=== PATIENT | male | born 1970 | race Two or more races ===

== ENCOUNTER 2025-01-05 05:53 | Emergency (ER) | payer BC, SELFPAY ==
--- OUTSIDE RECORDS SUMMARY | 2024-10-17 11:45 | XMS_ITS ---
Author Organization [facility] Address [address] [place], [place] [id number] Care Team Providers Care Slasher Runner Name Role Phone Denisse Talamantes Kenton [phone] REASON FOR VISIT DESIGN ARCHITECT Comp Exam Encounters Encounter Location Date Provider Diagnosis [facility] [address], [place] [id number] 10/17/2024 Denisse Talamantes Plan Of Treatment No Information Progress Notes * Maurice ADAMSDOB:1970 (54 yo M)Acc No.[id number]:10/17/2024 Patient: Maurice FERRELL Provider: Zunilda Talamantes DDS :1970 A ge:54 Y S ex:Male Date:10/17/2024 Address:[address] [facility] Subjective: * Chief Complaints: * 1 . DESIGN ARCHITECT Comp Exam. * Medical History: Objective: * Vitals: Assessment: Plan: * Treatment: * Billing Information: * Visit Code: * Procedure Codes: * Electronic signature of Annita Talamantes DDS on 01/05/2025 at 06:43 AM EDT Sign off status: Pending * Provider: Zunilda Talamantes DDS Date: 10/17/2024 Generated for Printi ng/Faxing/eTransmitting on: 01/05/2025 06:43 AM EDT
[2025-01-05 06:01] VITALS: BP 139/89; PULSE 61; TEMP 37.1; O2SAT 95; BMI 33.2
--- NOTE | 2025-01-05 06:13 | ED.GENADUL1 ---
HPI HPI - General Adult General Chief complaint: Skin/Abscess/Foreign Body Stated complaint: STUNG BY A BEE Time Seen by Provider: 01/05/25 05:59 Source: patient Mode of arrival: walk-in Limitations: no limitations History of Present Illness HPI narrative: cc -- insect bite/sting On January 03, the patient states that he was stung several times by what he presumes to be either wasps or bees. He was stung once on the left ear once on the left hand and once on the right forehead near the eyebrow. Over the last 12 hours, these areas have gone from being itchy to being acutely swollen. No systemic complaints such as fever or chills, difficulty talking or swallowing, vomiting. He does not have any known allergy to insects including bees or wasps. He has not taken any dulr-lrl-ckdyidd antihistamine or other medication for these issues. Related Data Home Medications ?Medication ?Instructions ?Recorded ?Confirmed No Known Home Medications 01/05/25 01/05/25 Allergies Allergy/AdvReac Type Severity Reaction Status Date / Time No Known Drug Allergies Allergy Verified 01/05/25 06:01 PFSH PFSH Social History Little interest or pleasure in doing things: not at all Feeling down, depressed, or hopeless: not at all Exam Narrative Exam Narrative: Nurses notes and vital signs reviewed and patient is not hypoxic. afebrile General: Well-appearing and in no apparent distress. Skin: Warm, dry, no pallor noted. No rash. Head: Swelling of the upper right eyelid. The remainder of the face and scalp are normocephalic, atraumatic. Neck: Supple, non-tender. Eye: Pupils are equal, round and EOMI. No scleral icterus. Ears, Nose, Mouth, and Throat: No swelling of the tongue or lips. Oral mucosa is moist Cardiovascular: Regular Rate and Rhythm without murmur, gallop or rub. Respiratory: No accessory muscle use or respiratory distress. Lungs are clear to auscultation, no wheezing, rales or rhonchi Musculoskeletal: 2 and half to 3 cm circular area of swelling and hive type reaction noted to the dorsum of the left hand near the area between the 1st and 2nd metacarpal. The left upper extremity has normal ROM, no wrist, forearm or upper arm tenderness, no diffuse or larger upper extremity edema/swelling Neurological: A&O x4. No cranial nerve dysfunction observed. No truncal ataxia. Moves all extremities. Sensation intact. Psychiatric: Cooperative and interactive. Normal mood and affect. Constitutional Vital Signs, click to edit/add: Last Vital Signs Temp 98.7 F 01/05/25 06:01 Pulse 61 01/05/25 06:01 Resp 19 01/05/25 06:01 BP 139/89 01/05/25 06:01 Pulse Ox 95 01/05/25 06:01 O2 Del Method Room Air 01/05/25 06:01 Course Vital Signs Vital signs: Vital Signs Temperature 98.7 F 01/05/25 06:01 Pulse Rate 61 01/05/25 06:01 Respiratory Rate 19 01/05/25 06:01 Blood Pressure 139/89 01/05/25 06:01 Pulse Oximetry 95 01/05/25 06:01 Oxygen Delivery Method Room Air 01/05/25 06:01 Temperature 98.7 F 01/05/25 06:01 Pulse Rate 61 01/05/25 06:01 Respiratory Rate 19 01/05/25 06:01 Blood Pressure 139/89 01/05/25 06:01 Pulse Oximetry 95 01/05/25 06:01 Oxygen Delivery Method Room Air 01/05/25 06:01 Medical Decision Making MDM Narrative Medical decision making narrative: The patient is having a localized reaction to 3 separate locations on his body after insect sting or bite. He was given IM Solu-Medrol 125 mg and also given oral Benadryl 25 mg before being discharged home. He was prescribed additional prednisone to take daily as needed for any continued swelling. I also told him to take 25 mg Benadryl 3 times a day until the swelling resolves. Reasons to return include difficulty breathing or swallowing, tongue swelling or swelling around the lips and mouth, difficulty talking or any other worrisome conditions. Discharge Plan Discharge Chief Complaint: Skin/Abscess/Foreign Body Clinical Impression: Insect bites, Allergic reaction to insect bite Patient Disposition: Home, Self-Care Time of Disposition Decision: 06:17 Prescriptions / Home Meds: No Action No Known Home Medications Print Language: Belgian Instructions: Insect Bite or Sting (ED)
[2025-01-05] MEDS: METHYLPREDNISOLONE SOD SUCC PF 125 MG/2 ML VIAL IM (06:23)
[2025-01-05] MEDS: DIPHENHYDRAMINE HCL 25 MG CAPSULE PO (06:23)
--- OUTSIDE RECORDS SUMMARY | 2025-01-05 06:43 | XMS_ITS | Encounter Summary ---
Author Organization [facility] Address [id number] [place] [address] Care Team Providers Care Revenue Liaison Name Role Phone Logan Snowden Primary Care Provider + [phone] Encounter Details Date Type Department Care Team (Late st Contact Info) Description 02/01/2024 Telephone [facility] - Family Medicine [address] [place] [address] Chelita Colindres CMA Social History Tobacco Use Types Packs/Day Years Used Date Smoking Tobacco: Former Cigarettes Q uit: 2016 Vaping/E-cigarettes Smokeless Tobacco: Never Alcohol Use Standard Drinks/Week Comments Yes 0 (1 standard drink = 0.6 oz pur e alcohol) Moderate C Utilities Answer Date Recorded In the past 12 months has [employer] electric, gas, oil, or water company threatened to shut off services in your home? No 01/21/2024 Social Connection and Isolat ion Panel [NHANES] Answer Date Recorded In a typical week, how many times do you talk on the phone with family, friends, or neighbors? More than three times a week 01/21/2024 How often do you get togethe r with friends or relatives? Once a week 01/21/2024 How often do you attend chur ch or evangelical services? Never 01/21/2024 Do you belong to any clubs o r organizations such as muslim groups, unions, fraternal or athletic groups, or school groups? No 01/21/2024 How often do you attend meet ings of the clubs or organizations you belong to? Never 01/21/2024 Are you , , di vorced, , never , or living with a partner? 01/21/2024 AUDIT-C Answer Date Recorded Q1: How often do you have a drink containing alc ohol? Monthly or less 01/21/2024 Q2: How many drinks containi ng alcohol do you have on a typical day when you are drinking? 1 or 2 01/21/2024 Q3: How often do you have si x or more drinks on one occasion? Never 01/21/2024 Overall Financial Resource Strain (CARDIA) Answe r Date Recorded How hard is it for you to pa y for the very basics like food, housing, medical care, and heating? Not hard at all 03/02/2023 PHQ-2 Answer Date Recorded Total Score 0 01/21/2024 [facility] ional Health - Occupational Stress Questionnaire Answer Date Recorded Do you feel stress - tense, restless, nervous, or anxious, or unable to sleep at night because your mind is troubled all the time - these days? Not at all 01/21/2024 Exercise Vital Sign Answer Date Recorde d On average, how many days pe r week do you engage in moderate to strenuous exercise (like a brisk walk)? 7 days 01/21/2024 On average, how many minutes do you engage in exercise at this level? 20 min 01/21/2024 PRAPARE - Transportation Answer Date Re corded In the past 12 months, has l ack of transportation kept you from medical appointments or from getting medications? No 02/04 In the past 12 months, has l ack of transportation kept you from meetings, work, or from getting things needed for daily living? No 03/02/2023 Housing Instability Answer Date Recorde d Are you worried or concerned that in the next two months you may not have stable housing that you own, rent or stay in as a part of a household? No 03/02/2023 Childcare Answer Date Recorded Do problems getting child ca re make it difficult for you to work or study? No 01/21/2024 Employment Answer Date Recorded Do you need help finding a [facility] career center and/or a training program? No 01/21/2024 Hunger Screening Answer Date Recorded Within the past 12 months we worried whether our food would run out before we got money to buy more. Never True 01/21/2024 Within the past 12 months th e food we bought just didn't last and we didn't have money to get more. Never True 01/21/2024 Purpose - Life Answer Date Recorded I have a purpose and direction in my life. Agree 01/21/2024 Sex and Gender Information Value Date Recorded Sex Assigned at Not on file Legal Sex Male 11:54 AM EDT Gender Identity Not on file Sexual Orientation Not on file documented as of this encounter Miscellaneous Notes * Telephone Encounter - Chelita Colindres CMA - 02/01/2024 10:13 AM EDT This patient is scheduled for his Colonoscopy on Feb 15 at 10:00am. [facility] * Telephone Encounter - Benedicto Grullon DO - 02/01/2024 10:13 AM EDT Message noted. H&P done. Rx Sup[facility] sent to [facility] documented in this encounter Plan of Treatment Upcoming Encounters Date Type Department Care Team (Late st Contact Info) Description 01/23/2025 4:00 PM EDT Office Visit [facility] - Family Medicine [address] [place] [address] Logan Snowden DO [address] [facility] [place] [address] documented as of this encounter Visit Diagnoses Not on filedocumented in this encounter Additional Health Concerns Assessment Noted Time PHQ-9 Depression Total Score: 0 01/21/20 24 3:37 PM EDT documented as of this encounter Care Teams Revenue Liaison Relationship Specialty Start Date End Date Logan Snowden DO [address] [place] [address] PCP - General Family Medicine 10/31/21 documented as of this encounter
--- OUTSIDE RECORDS SUMMARY | 2025-01-05 06:43 | XMS_ITS | Encounter Summary ---
Author Organization [facility] Address [id number] [place] [address] Care Team Providers Care Medical Nurse Name Role Phone Logan Snowden DO Primary Care Provider [phone] Encounter Details Date Type Department Care Team (Late st Contact Info) Description 03/21/2024 Orders Only [facility] - Family Medicine [address] [place] [address] Logan Snowden DO [address] [place] [address] Social History Tobacco Use Types Packs/Day Years Used Date Smoking Tobacco: Former Cigarettes Q uit: 2016 Vaping/E-cigarettes Smokeless Tobacco: Never Alcohol Use Standard Drinks/Week Comments Yes 0 (1 standard drink = 0.6 oz pur e alcohol) Moderate C Utilities Answer Date Recorded In the past 12 months has [employer], gas, oil, or water [employer] threatened to shut off services in your [...] week 01/21/2024 How often do you attend [facility] or tenriism services? Never 01/21/2024 Do you belong to any clubs o r organizations such as scientologist groups, unions, fraternal or athletic groups, or [...] Answer Date Recorded Total Score 0 01/21/2024 [facility] Occupat ional Health - Occupational Stress [...] Recorded Do you need help finding a [facility] career center and/or a training program? [...] on file documented as of this encounter Plan of Treatment Upcoming Encounters Date Type Department Care Team (Late st Contact Info) Description 01/23/2025 4:00 PM EDT Office Visit [facility] - Family Medicine [address] [place] [address] Logan Snowden DO [address] [facility] [place] [address] documented as of this encounter Visit Diagnoses Not on filedocumented in this encounter Additional Health Concerns Assessment Noted Time PHQ-9 Depression Total Score: 0 01/21/20 24 3:37 PM EDT documented as of this encounter Care Teams Medical Nurse Relationship Specialty Start Date End Date Logan Snowden DO [address] [facility] [address] PCP - General Family Medicine 10/31/21 documented as of this encounter
--- OUTSIDE RECORDS SUMMARY | 2025-01-05 06:43 | XMS_ITS | Patient Health Record ---
Author Organization [facility] Address [address] [place], [place] [address] Care Team Providers Care Deputy Building Guard Name Role Phone Denisse Talamantes Unavailable [phone] Allergies No Known Allergies Reason For Referral No Information Problems Problem Type SNOMED Code ICD Code Onset Dates Problem Status W/U Status Risk Notes Problem Supraspinatus tear (disorder) (290755408) Supraspinatus tendon tear (M75.100) Active confirmed Problem Impingement syndrome of left shoulder region (13340828982632 4) Shoulder impingement, left (M75.42) Active confirmed Comment:Patien t requesting steroid injection. Discussed procedure and what to expect. F/u instructions given. RTO if no improvement., Problem Depression screening (114642625) Screening for depression (Z13.31) Active confirmed Description:De pression screening Problem Plantar fasciitis (640043992) Plantar fasciitis (M72.2) Active confirmed Comment:instru cted using water bottle or soup can to roll out foot twice a day. recommend getting some insoles specific for plantar fasciitis and wearing them in his work shoes. followup in one month., Problem Bicipital tenosynovitis (18937067) Biceps tendonitis (M75.20) Active confirmed Problem Impingement syndrome of shoulder region (611061089) Shoulder impingement, right (M75.41) Active confirmed Comment:will get x-ray -if normal will do PT for 3 weeks and gauge response -REST SHOULDER -ice and nsaids -f/u in 2 weeks, Plan Of Treatment No Information Insurance Providers Payer Name Payer Address Payer Phone Subscriber Number Group Number Insured Name Patient Relationship to Insured Coverage Start Date Coverage End Date [facility] [address] [place] [address] [id number] Maurice Adams Self - patient is the insured 5 Medical (General) History Surgical History Surgery Date(Month/Year) None, ProblemStatus: Active, 2017-03-11
--- OUTSIDE RECORDS SUMMARY | 2025-01-05 06:43 | XMS_ITS | Encounter Summary ---
Author Organization [facility] Address [id number] [address] [place] [address] Care Team Providers Care Still Pump Operator Name Role Phone Logan Snowden Primary Care Provider + [phone] Encounter Details Date Type Department Care Team (Late st Contact Info) Description 02/08/2024 Orders Only [facility] - Family Medicine [address] [place] [address] Benedicto Grullon [address] [place] [address] Special screening for malignant neoplasm of colon (Primary Dx) Social History Tobacco Use Types Packs/Day Years Used Date Smoking Tobacco: Former Cigarettes Q uit: 2016 Vaping/E-cigarettes Smokeless Tobacco: Never Alcohol Use Standard Drinks/Week Comments Yes 0 (1 standard drink = 0.6 oz pur e alcohol) Moderate AHC Utilities Answer Date Recorded In the past 12 months has [employer], gas, oil, or water [employer] threatened to shut off services in your [...] week 01/21/2024 How often do you attend [facility] or taoism services? Never 01/21/2024 Do you belong to any clubs o r organizations such as oriental orthodox groups, unions, fraternal or athletic groups, or [...] Answer Date Recorded Total Score 0 01/21/2024 [facility] of Occupat ional Health - Occupational Stress [...] Internal Medicine - Family Medicine [address] [place] [address] Logan Snowden DO [address] [facility] [place] [address] documented as of this encounter Visit Diagnoses Diagnosis Special screening for malignant neoplasm of colon- Primary Special screening for malignant neoplasms, colon documented in this encounter Additional Health Concerns Assessment Noted Time PHQ-9 Depression Total Score: 0 01/21/20 24 3:37 PM EDT documented as of this encounter Care Teams Still Pump Operator Relationship Specialty Start Date End Date Logan Snowden DO [address] [facility] [place] [address] PCP - General Family Medicine 10/31/21 documented as of this encounter
--- OUTSIDE RECORDS SUMMARY | 2025-01-05 06:43 | XMS_ITS | Encounter Summary ---
Author Organization [employer] Address [facility] [place] [id number] [place] [address] Care Team Providers Care Complaint Adjuster Name Role Phone Logan Snowden DO Primary Care Provider [phone] Reason for Visit * Reason Comments Med Refill Encounter Details Date Type Department Care Team (Late st Contact Info) Description 09/17/2022 Refill [facility] - Family Medicine [address] [place] [address] Logan Snowden DO [address], [facility] [place] [address] Hyperlipidemia, unspecified Social History Tobacco Use Types Packs/Day Years Used Date Smoking Tobacco: Former Cigarettes Q uit: 2016 Vaping/E-cigarettes Smokeless Tobacco: Never Alcohol Use Standard Drinks/Week Comments Yes 0 (1 standard drink = 0.6 oz pur e alcohol) Moderate PHQ-2 Answer Date Recorded Total Score 0 09/03/2022 Childcare Answer Date Recorded Childcare Unknown 12/15/2018 Employment Answer Date Recorded Employment Unknown 12/15/2018 Purpose - Life Answer Date Recorded Purpose and direction in life Unknown Sex and Gender Information Value Date Recorded Sex Assigned at Not on file Legal Sex Male 11:54 AM EDT Gender Identity Not on file Sexual Orientation Not on file COVID-19 Exposure Response Date Recorded In the last month, have you been in contact with someone who was confirmed or suspected to have Coronavirus / COVID-19? No / Unsure 09/03/2022 11:08 AM EST documented as of this encounter Plan of Treatment Upcoming Encounters Date Type Department Care Team (Late st Contact Info) Description 01/23/2025 4:00 PM EDT Office Visit [facility] - Family Medicine [address] [place] [address] Logan Snowden DO [address] [facility] [place] [address] documented as of this encounter Visit Diagnoses Diagnosis Hyperlipidemia, unspecified documented in this encounter Additional Health Concerns Assessment Noted Time PHQ-9 Depression Total Score: 0 09/04/19 11:33 AM EST documented as of this encounter Care Teams Complaint Adjuster Relationship Specialty Start Date End Date Logan Snowden DO [address] [facility] [place] [address] PCP - General Family Medicine 10/31/21 documented as of this encounter
--- OUTSIDE RECORDS SUMMARY | 2025-01-05 06:43 | XMS_ITS | Encounter Summary ---
Author Organization [facility] Address [id number] [place] [address] Care Team Providers Care Hat Marker Name Role Phone Logan Snowden Primary Care Provider + [phone] Encounter Details Date Type Department Care Team (Late st Contact Info) Description 01/19/2024 Telephone [facility] - Family Medicine [address] [place] [address] Rosita Watson, FERRY OPERATOR Social History Tobacco Use Types Packs/Day Years Used Date Smoking Tobacco: Former Cigarettes Q uit: 2016 Vaping/E-cigarettes Smokeless Tobacco: Never Alcohol Use Standard Drinks/Week Comments Yes 0 (1 standard drink = 0.6 oz pur e alcohol) Moderate AHC Utilities Answer Date Recorded In the past 12 months has [facility] electric, gas, oil, or water company threatened [...] often do you attend chur ch or congregational services? Never 01/21/2024 Do you belong to any clubs o r organizations such as moravian groups, unions, fraternal or athletic groups, or [...] Answer Date Recorded Total Score 0 01/21/2024 [facility] of Occupat ional Health - Occupational [...] Recorded Do you need help finding a [facility] career center and/or a training program? [...] on file documented as of this encounter Functional Status * Audit-C Score Answer Date of Assessment Author 1 01/21/2024 4:04 PM ESTELLAT Logan Snowden, * Question Answer Date of Assessment Author Q1: How often do you have a drink containing alcohol? Monthly or less 01/21/2024 4:04 PM Logan Garcia DO Q2: How many drinks containing alcohol do you have on a typical day when you are drinking? 1 or 2 01/21/2024 4:04 PM Porfirio Garcia DO Q3: How often do you have six or more drinks on one occasion? Never 01/21/2024 4:04 PM Logan Garcia DO documented as of this encounter Miscellaneous Notes * Telephone Encounter - Rosita Watson CMA - 01/19/2024 11:22 AM EDT Pts called stated you took him off the nexium and wanted to know if you would send on [facility] * Telephone Encounter - Logan Snowden DO - 01/19/2024 11:22 AM EDT I recommended that he cut back to every other day, not stop it. Has been taking it every other day? * Telephone Encounter - Rosita Watson CMA - 01/19/2024 11:22 AM EDT I called back and read your note she said you told them they cause cancer so they threw them out , she got him some OTC prolosec and they seem to help better an wanted to know if you could send a script ? * Telephone Encounter - Logan Snowden DO - 01/19/2024 11:22 AM EDT The Prilosec has the same risks as Nexium and it is fractures, chronic kidney disease, C diff infection and possibly dementia risks, not any strong association with cancer. documented in this encounter Plan of Treatment Upcoming Encounters Date Type Department Care Team (Late st Contact Info) Description 01/23/2025 4:00 PM EDT Office Visit [facility] - Family Medicine [address] [place] [address] Logan Snowden DO [address] [facility] [place] [address] documented as of this encounter Visit Diagnoses Not on filedocumented in this encounter Additional Health Concerns Assessment Noted Time PHQ-9 Depression Total Score: 0 12/29/19 24 3:56 PM EDT documented as of this encounter Care Teams Hat Marker Relationship Specialty Start Date End Date Logan Snowden DO [address] [facility] [place] [address] PCP - General Family Medicine 10/31/21 documented as of this encounter
--- OUTSIDE RECORDS SUMMARY | 2025-01-05 06:43 | XMS_ITS | Encounter Summary ---
Author Organization [employer] Address [facility] [id number] [address] [place] [address] Care Team Providers Care Master Carpenter Name Role Phone Logan Snowden DO Primary Care Provider + [phone] Reason for Visit * Reason Comments Med Change Request Encounter Details Date Type Department Care Team ([facility] Contact Info) Description 07/16/2022 Refill [facility] Internal Medicine - Family Medicine [address] [place] [address] Tiny Hines, CERTIFIED PHYSICIAN'S ASSISTANT-[employer] [address] [place] [address] Social History Tobacco Use Types Packs/Day Years Used Date Smoking Tobacco: Former Cigarettes Q uit: 2016 Vaping/E-cigarettes Smokeless Tobacco: Never Alcohol Use Standard Drinks/Week Comments Yes 0 (1 standard drink = 0.6 oz pur e alcohol) Moderate Childcare Answer Date Recorded Childcare Unknown 12/15/2018 [...] Upcoming Encounters Date Type Department Care Team ([facility] Contact Info) Description 01/23/2025 4:00 PM EDT Office Visit [facility] Internal Medicine - Family Medicine [address] [place] [address] Logan Snowden DO [address], [place] [address] documented as of this encounter Visit Diagnoses Not on filedocumented in this encounter Care Teams Master Carpenter Relationship Specialty Start Date End Date Logan Snowden DO [address], [facility] [place] [address] PCP - General Family Medicine 10/31/21 documented as of this encounter
--- OUTSIDE RECORDS SUMMARY | 2025-01-05 06:43 | XMS_ITS | Encounter Summary ---
Author Organization [employer] [facility] Address [facility] [id number] [address] [place] [address] Care Team Providers Care Fireman Name Role Phone Logan Snowden Primary Care Provider + [phone] Encounter Details Date Type Department Care Team (Late st Contact Info) Description 01/22/2024 Telephone [facility] Internal Medicine - Family Medicine [address] [place] [address] Morgan Soto CMA Social History Tobacco Use Types Packs/Day Years Used Date Smoking Tobacco: Former Cigarettes Q uit: 2016 Vaping/E-cigarettes Smokeless Tobacco: Never Alcohol Use Standard Drinks/Week Comments Yes 0 (1 standard drink = 0.6 oz pur e alcohol) Moderate C Utilities Answer Date Recorded In the past 12 months has [employer] electric, gas, oil, or water company threatened [...] often do you attend chur ch or presybeterian services? Never 01/21/2024 Do you belong to any clubs o r organizations such as restorationist groups, unions, fraternal or athletic groups, or [...] Answer Date Recorded Total Score 0 01/21/2024 [facility] of Occupat ional Health - [...] Recorded Do you need help finding a [facility] career center and/or a training program? No [...] encounter Miscellaneous Notes * Telephone Encounter - Morgan Soto CMA - 01/22/2024 12:11 PM EDT ----- Message from Dr. Logan Snowden DO sent at 01/22/2024 11:56 AM EDT ----- His CMP showed an ALT of 60. That is up from 1 year ago when it was 49. I would recommend a liver ultrasound to evaluate this further. The rest of his metabolic panel was essentially normal. His PSA was normal. His lipids were all at goal. They are actually much better than they were 1 year ago. Continue rosuvastatin. documented in this encounter Plan of Treatment Upcoming Encounters Date Type Department Care Team (Late st Contact Info) Description 01/23/2025 4:00 PM EDT Office Visit [facility] Medicine - Family Medicine [address] [place] [address] Logan Snowden DO [address], [facility] [place] [address] documented as of this encounter Visit Diagnoses Not on filedocumented in this encounter Additional Health Concerns Assessment Noted Time PHQ-9 Depression Total Score: 0 01/21/20 24 3:37 PM EDT documented as of this encounter Care Teams Fireman Relationship Specialty Start Date End Date Logan Snowden DO [address] [facility] [place] [address] PCP - General Family Medicine 10/31/21 documented as of this encounter
--- OUTSIDE RECORDS SUMMARY | 2025-01-05 06:43 | XMS_ITS | Encounter Summary ---
Author Organization [employer] Address [facility] [id number] [address] [place] [address] Care Team Providers Care Intelligence Applications Name Role Phone Logan Snowden DO Primary Care Provider [phone] Encounter Details Date Type Department Care Team ([facility] Contact Info) Description 04/16/2022 Orders Only [facility] Internal Medicine - Family Medicine [address] [place] [phone] External, Scanning Provider Social History Tobacco Use Types Packs/Day Years Used Date Smoking Tobacco: Former Cigarettes Vaping/E-cigarettes Smokeless Tobacco: Never Alcohol Use Standard [...] have Coronavirus / COVID-19? No / Unsure 04/17/2022 11:17 AM EDT documented as of this encounter Plan of Treatment Upcoming Encounters Date Type Department Care Team (Late Contact Info) Description 01/23/2025 4:00 PM EDT Office Visit [facility] Internal Medicine - Family Medicine [address] [place] [phone] Logan Snowden DO [address] [place] [address] documented as of this encounter Procedures Procedure Name Priority Date/Time Associated Diagnosis Comments LIPID PROFILE Routine 12/23/2021 documented in this encounter Results * (ABNORMAL) Lipid profile (12/23/2021) External Cholesterol 198 < - 200 MANUALLY TRANSCRIBED RESULTS External Cholesterol:Hdl 5.4(A) < - 5.0 MANUALLY TRANSCRIBED RESULTS External Hdl Cholesterol 37 >40 MANUALLY TRANSCRIBED RESULTS External Ldl (Calc) 134(A) < - 100 MANUALLY TRANSCRIBED RESULTS External Triglycerides 138 < - 150 MANUALLY TRANSCRIBED RESULTS 12/23/2021 us Scanning Provider External LAB BLOOD ORDERABLES Final Result Performing Organization Address City/State/[facility] Co de Phone Number MANUALLY TRANSCRIBED RESULTS documented in this encounter Visit Diagnoses Not on filedocumented in this encounter Care Teams Intelligence Applications Relationship Specialty Start Date End Date Logan Snowden DO [address], [place] [address] PCP - General Family Medicine 10/31/21 documented as of this encounter
--- OUTSIDE RECORDS SUMMARY | 2025-01-05 06:43 | XMS_ITS | Encounter Summary ---
Author Organization [employer] [facility] Address [facility] [place] [id number] [address] [place] [address] Care Team Providers Care Mold Builder Name Role Phone Logan Snowden DO Primary Care Provider + [phone] Reason for Visit * Reason Comments Med Refill Encounter Details Date Type Department Care Team (Late st Contact Info) Description 12/31/2024 Refill [facility] Internal Medicine - Family Medicine [address] [place] [address] Logan Snowden DO [address], [facility] [place] [address] Social History Tobacco Use Types Packs/Day Years Used Date Smoking Tobacco: Former Cigarettes Q uit: 2016 Vaping/E-cigarettes Smokeless Tobacco: Never Alcohol Use Standard Drinks/Week Comments Yes 0 (1 standard drink = 0.6 oz pur e alcohol) Moderate AHC Utilities Answer Date Recorded In the past 12 months has [employer], gas, oil, or water [employer] threatened to shut off services in your [...] week 01/21/2024 How often do you attend [facility] or roman catholic services? Never 01/21/2024 Do you belong to any clubs o r organizations such as yazidism groups, unions, fraternal or athletic groups, or [...] PHQ-2 Answer Date Recorded Total Score 0 12/05/2024 [facility] of Occupat ional [...] Recorded Do you need help finding a [facility] career center and/or a training program? No 01/21/2024 Hunger Screening Answer Date Recorded Within the past 12 months we worried whether our food would run out before we got money to buy more. Never True 12/05/2024 Within the past 12 months th e food we bought just didn't last and we didn't have money to get more. Never True 12/05/2024 Purpose - Life Answer Date Recorded I [...] Medicine - Family Medicine [address] [place] [address] Logan Snowden DO [address], [facility] [place] [address] documented as of this encounter Visit Diagnoses Not on filedocumented in this encounter Additional Health Concerns Assessment Noted Time PHQ-9 Depression Total Score: 0 12/06/19 25 3:23 PM EDT A Body Mass Index follow-up plan has been documented for the patient 11/14/2024 3:37 PM EDT documented as of this encounter Care Teams Mold Builder Relationship Specialty Start Date End Date Logan Snowden DO [address] [facility] [place] [address] PCP - General Family Medicine 10/31/21 documented as of this encounter
--- OUTSIDE RECORDS SUMMARY | 2025-01-05 06:43 | XMS_ITS | Clinical Summary ---
Author Organization [facility] Address [address] [place] [address] Care Team Providers Care Soccer Player Name Role Phone Unavailable Primary Care Provider Unavailabl e Social History Tobacco Use Types Packs/Day Years Used Date Smoking Tobacco: Never Assessed Sex and Gender Information Value Date Recorded Sex Assigned at Not on file Legal Sex Male 8:13 PM EDT Gender Identity Not on file Sexual Orientation Not on file Last Filed Vital Signs Vital Sign Reading Time Taken Comments Blood Pressure 132/92 07/08/2017 12:00 PM EST Pulse - - Temperature - - Respiratory Rate - - Oxygen Saturation - - Inhaled Oxygen Concentration - - Weight 98.4 kg (217 lb) 07/08/2017 12:00 PM EST Height 172.7 cm (5' 8 ) 07/08/2017 12:00 PM EST Body Mass Index 32.99 07/08/2017 12:00 PM EST Plan of Treatment Not on file Insurance [facility]
--- OUTSIDE RECORDS SUMMARY | 2025-01-05 06:43 | XMS_ITS | Clinical Summary ---
Author Organization [employer] [facility] Address [id number] [address] [place] [address] Care Team Providers Care Banking Pin Adjuster Name Role Phone NileLogan gee Primary Care Provider Allergies No known active allergies Medications furosemide (LASIX) 20 mg tabletIndication s:Localized edema TAKE 1 TABLET BY MOUTH EVERY DAY IN THE MORNING 90 tablet 1 09/17/19 25 Active rosuvastatin (CRESTOR) 10 mg tabletIndication s:Hyperlipidemia , unspecified TAKE 1 TABLET BY MOUTH EVERY DAY 90 tablet 12/15/19 25 Active losartan (COZAAR) 50 mg tabletIndication s:Essential (primary) hypertension TAKE 1 TABLET BY MOUTH EVERY DAY 90 tablet 1 12/15/19 25 Active naproxen (NAPROSYN) 500 mg tablet TAKE 1 TABLET BY MOUTH 2 TIMES A DAY NEEDED FOR PAIN. 60 tablet 2 01/02/20 25 Active rosuvastatin (CRESTOR) 10 mg tabletIndication s:Hyperlipidemia , unspecified take 1 tablet by mouth every day 90 tablet 2 03/20/20 24 025 Discontinued losartan (COZAAR) 50 mg tabletIndication s:Essential (primary) hypertension take 1 tablet by mouth every day 90 tablet 1 04/10/20 24 025 Discontinued naproxen (NAPROSYN) 500 mg tablet TAKE 1 TABLET BY MOUTH 2 TIMES A DAY NEEDED FOR PAIN. 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 GERD (gastroesophageal reflux disease) Obesity Encounters Date Type Department Care Team Description 12/31/2024 Refill [facility] Internal Medicine - Family Medicine [address] [place] [address] Logan Snowden DO 12/14/2024 Refill [facility] Internal Medicine - Family Medicine [address] [place] [address] Logan Snowden DO Hyperlipidemia, unspecified; Essential (primary) hypertension 12/05/2024 3:30 PM EDT Office Visit [facility] - [facility] [address] [place] [address] Logan Snowden, Impingement of right shoulder (Primary Dx) 12/05/2024 Travel 11/14/2024 3:00 PM EDT Office Visit [facility] - [facility] Medicine [address] [place] [address] Rosalie Sesay, MIKY-SEDA Acute dermatitis (Primary Dx) 11/14/2024 Travel from Last 3 Months Immunizations Immunization Administration Dates Next Due Tdap 01/31/2018,01/01/2014 Zoster Vaccine Recombinant 01/21/2024 Family History Medical History Relation Name Comments No Known Problems Brother No Known Problems Daughter Cancer Father Malignant Tumor of Pharynx Diabetes Maternal Aunt Hypertension Maternal Aunt Diabetes Maternal Uncle Hypertension Maternal Uncle Breast cancer Mother Colon cancer Mother Diabetes Mother Hypertension Mother No Known Problems Sister No Known Problems Son Relation Name Status Comments Brother Alive Daughter Alive Father (Age 73) Maternal Aunt Maternal Uncle Mother Alive Sister Alive Son Alive Social History Tobacco Use Types Packs/Day Years Used Date Smoking Tobacco: Former Cigarettes Q uit: 2016 Vaping/E-cigarettes Smokeless Tobacco: Never Tobacco Cessation:Counseling Given: Not Answered Alcohol Use Standard Drinks/Week Comments Yes 0 (1 standard drink = 0.6 oz pur e alcohol) Moderate C Utilities Answer Date Recorded In the past 12 months has th e electric, gas, oil, or water company threatened [...] often do you attend chur ch or holiness services? Never 01/21/2024 Do you belong to any clubs o r organizations such as advent groups, unions, fraternal or athletic groups, or [...] Answer Date Recorded Total Score 0 12/05/2024 [facility] [place] of Occupat ional Health - Occupational Stress [...] Recorded Do you need help finding a [facility] career center and/or a training program? [...] Sign Reading Time Taken Comments Blood Pressure 110/80 12/05/2024 3:24 PM EDT Pulse 66 12/05/2024 3:24 PM EDT Temperature 36.8 C (98.3 F) 12/05/2024 3:24 PM EDT Respiratory Rate 18 12/05/2024 3:24 PM EDT Oxygen Saturation 97% 12/05/2024 3:24 PM EDT Inhaled Oxygen Concentration - - Weight 105.2 kg (232 lb) 12/05/2024 3:24 PM EDT Height 175.3 cm (5' 9.02 ) 12/05/2024 3:24 PM ED T Body Mass Index 34.24 12/05/2024 3:24 PM EDT Plan of Treatment Upcoming Encounters Date Type Department Care Team (Late st Contact Info) Description 01/23/2025 4:00 PM EDT Office Visit [facility] - Family Medicine [address] [place] [phone] Logan Snowden DO [address], [place] [address] Health Maintenance Due Date Last Done Comments Influenza Vaccine 03/06/2025 Zoster (Shingles) Vaccine (2 of 2) 07/06/2025 01/21/2024 Postponed from 03/17/2024 (Patient Refused) Adult BMI Follow Up Plan 11/14/2025 11/14/2024 Adult BMI Screening 12/05/2025 12/05/2024 Depression Screening 12/05/2025 12/05/2024 Tobacco Screening 12/05/2025 12/05/2024 DTaP,Tdap and Td Vaccines (3 - Td or Tdap) 02/01/2028 01/31/2018, 01/01/2014 Colonoscopy 02/15/2029 02/16/2024, 02/03, 12/09/2021, Additional history exists Medical Devices Not on file Procedures Procedure Name Priority Date/Time Associated Diagnosis Comments [place] ARTHROCENTESIS ASPIR&/INJ MAJOR JT/BURSA W/O US Routine 12/05/2024 3:59 PM EDT Impingement of right shoulder PROVATION COLONOSCOPY Routine 02/16/2024 9:15 AM EDT from Last 3 Months or Most Recently Relevant to Health Maintenance Results * [place] ARTHROCENTESIS ASPIR&/INJ MAJOR JT/BURSA W/O US (12/05/2024 3:59 PM EDT) Narrative MANUALLY TRANSCRIBED RESULTS - 12/05/2024 3:59 PM EDT Logan Snowden DO 12/05/2024 5:49 PM $ Arthrocentesis Date/Time: 12/05/2024 3:59 PM Performed by: Logan Snowden DO Authorized by: Logan Snowden DO Fire Risk Assessment Score Procedure site above the Xiphoid 1 Open O2 source (mask/cannula) 0 Ignition source (Cautery, Fiberoptic Light, Laser) 0 Total Fire Risk Assessment Score 1 Verbal consent obtained?: Yes Written consent obtained?: Yes Risks and benefits: Risks, benefits and alternatives were discussed Consent given by: Patient Patient states understanding of procedures being performed: Yes Patient's understanding of procedure matches consent: Yes Procedure consent matches procedure scheduled: Yes Relevant documents present and verified: Yes Site marked: Yes Imaging studies available: No Patient identity confirmed: Verbally with patient Indications: Pain and diagnostic evaluation Body area: Shoulder Joint: Right shoulder Needle size: 25 G Ultrasound guidance: No Approach: Lateral Lidocaine HCL 1% amount (ml): 4 Triamcinolone amount (mg): 40 Procedure was completed Vital signs stable during the procedure Complications: none Interventions: none Post Anesthesia Evaluation (excludes pre-procedural restrictions and appropriate to age) patient returned to pre-procedure baseline us Logan Snowden DO PROCEDURE/MINOR SURGICAL ORD ERABLES Final Result MANUALLY TRANSCRIBED RESULTS * Colonoscopy Report (02/16/2024 9:15 AM EDT) Narrative SYSTEMGENERATED, DOCUMENTATION - 02/16/2024 9:15 AM EDT This order has been auto-finalized for image and report archival in PACs. *For full report details, please reach out to your physician. This image is visible to you in MyChart.* Benedicto Grullon DO IMG OR IMG ORDERABLES Final Resu lt from Last 3 Months or Most Recently Relevant to Health Maintenance Insurance [facility] [employer] Care Teams Banking Pin Adjuster Relationship Specialty Start Date End Date Logan Snowden DO [address] [facility] [place] [address] PCP - General Family Medicine 10/31/21
--- NOTE | 2025-01-05 06:57 | PC.NURSE ---
i gave this patient verbal and written discharge orders along with 1 e-script, and this patient voices yes to understanding these. at time of discharge this patient voices no concerns, needs and this patient shows no signs of distress
== END 2025-01-05 06:56 | disposition home or self-care (01) ==
PROVIDERS: Emergency Provider Emergency Medicine
DX: S00.462A Insect bite (nonvenomous) of left ear, initial encounter (principal); S00.86XA Insect bite (nonvenomous) of other part of head, initial encounter; S60.562A Insect bite (nonvenomous) of left hand, initial encounter; W57.XXXA Bitten or stung by nonvenomous insect and other nonvenomous arthropods, initial encounter; T78.49XA Other allergy, initial encounter
CPT/HCPCS: 96372; 99284; J2919